=== PATIENT | male | born 1955 | race Caucasian/White ===

== ENCOUNTER → 2016-12-22 | Outpatient (CLI) | payer OTHER ==
[2016-02-22 19:04] VITALS: BP 134/82
[~2016-12-22] MED LIST: ALBU6.7H IH; ASPI325T8 PO; ATORVASTATIN CA80 MG PO; AZIT250T6 PO; BUPR150T11 PO; CELE200C PO; ESOM40CA PO; FLUT1DIS3 IH; FURO-69 PO; LEVO50TA5 PO; METF500T4 PO; MONT10TA9 PO; NEBI20TA2 PO; PRED20TA PO; TADA5TAB PO; TRAZ50TA15 PO; VALS1TAB8 PO
[2016-12-22 10:03] LABS: ALBUMIN 3.5 g/dL (3.4-5.0); ALBUMIN/GLOBULIN RATIO 0.8 (1.0-1.7); CALCIUM 8.7 mg/dL (8.5-10.1); CREATININE 0.9 mg/dL (0.7-1.3); GFR 86.1; POTASSIUM 3.9 mmol/L (3.5-5.1); TOTAL BILIRUBIN 0.6 mg/dL (0.2-1.0); TOTAL PROTEIN 7.7 g/dL (6.4-8.2)
[2016-12-22 12:23] LABS: THYROID STIM HORMONE (TSH) 2.648 uIU/mL (0.358-3.740)
[2016-12-23 04:07] LABS: HEMOGLOBIN A1C 5.4 % (4.8-5.6)
== END | disposition home or self-care (01) ==
LOC: LAB 08:28
PROVIDERS: ATTEND Nurse Practitioner
DX: E78.5 Hyperlipidemia, unspecified (principal)
CPT/HCPCS: 36415; 80053; 80061; 83036; 84443